=== PATIENT | male | born 1995 | race African-American/Black ===

== ENCOUNTER 2016-09-04 00:07 | Emergency (ER) | payer MEDICARE, MEDICAID ==
[2016-09-04] MEDS ORDERED: Bacitracin Zinc 1 Packet ONE (00:26)
[2016-09-04] MEDS ORDERED: cefTRIAXone\\ROCEPHIN 1 GM VIAL ONE (00:33)
[2016-09-04] MEDS ORDERED: Lidocaine 1% 20 ML MDV ONE (00:34)
[2016-09-04] MEDS ORDERED: Doxycycline 100 MG CAP ONE (00:36)
== END 2016-09-04 01:00 | disposition home or self-care (01) ==
LOC: NAV ERS 00:07
DX: L02.415 Cutaneous abscess of right lower limb (principal); J45.909 Unspecified asthma, uncomplicated
CPT/HCPCS: 87070; 87077; 87186; 87205; 96372; J0696; J2001